=== PATIENT | male | born 1980 | race Caucasian/White ===

== ENCOUNTER 2017-02-02 10:37 | Observation (INO) | payer OTHER ==
[~2017-02-02] VITALS: Ht 170.2 cm; Wt 80.8 kg
[2017-02-02 11:35] VITALS: BP 116/79
[2017-02-02] MEDS ORDERED: HYDROcodone/APAP 5/325MG 1 TAB TABLET PO PRN (12:00)
--- NOTE | 2017-02-02 12:05 | PDOC1 ---
History and Physical Date of Admission Date of Admission DATE: 02/02/17 TIME: 12:00 Identification/Chief Complaint Chief Complaint Abdominal pain and swelling Problems: Source Source: Patient History of Present Illness History of Present Illness 36 yo male with compliants of reddness, pain and swelling athe umbilicus in the middle of a well healed midline scar. Past Medical History Cardiovascular: No pertinent hx Pulmonary: No pertinent hx GI: No pertinent hx Heme/Onc: No pertinent hx Psych: No pertinent hx Rheumatologic: No pertinent hx Infectious disease: No pertinent hx ENT: No pertinent hx Renal/: No pertinent hx Endocrine: No pertinent hx Dermatology: No pertinent hx Past Surgical History Past Surgical History: Appendectomy, Colon Resection Family History Family History: No Significant Social History Smoke: No ALCOHOL: none Drugs: None Current Medications Current Medications Active Scripts Active No Active Prescriptions or Reported Medications Allergies Allergies: Coded Allergies: No Known Drug Allergies (Unverified , 02/02/17) ROS General: YES: Fatigue Gastrointestinal: Yes Abdominal Pain Physical Exam General: Alert, Oriented X3, Cooperative, mild distress HEENT: Atraumatic, PERRLA, EOMI Lungs: Clear to auscultation, Normal air movement Heart: RRR Abdomen: Normal bowel sounds, Soft, Other (TTP at umbilicus with erythema ) Extremities: No clubbing, No cyanosis, No edema Skin: No significant lesion Neuro: Normal speech Psych/Mental Status: Mental status NL VTE Prophylaxis Ordered VTE Prophylaxis Devices: No VTE Pharmacological Prophylaxi: No Assessment/Plan Assessment/Plan Abdominal wall cellulitis possible abscess Start IV Abx and U/S for further evaluation. SHANA MATTHEWS MD Feb 02, 2017 12:05
[2017-02-02 12:58] VITALS: BP 116/79
[2017-02-02] MEDS: IV DEXTROSE 5%-LACT RINGERS 1,000 ML IV SCH (13:14)
--- NOTE | 2017-02-02 14:45 | RAD ---
Exam performed: Limited ultrasound evaluation of the umbilical area. Date of service: 02/02/17. Comparison: None available Discussion: Real-time grayscale imaging of the periumbilical area is performed in the area of pain, redness and swelling. There is a complex fluid collection measuring 2.3 x 1.8 x 1.1 cm beneath the area of concern in the umbilical area. Impression: Small fluid collection in the area of concern and probably represents a tiny abscess.
[2017-02-02 15:09] VITALS: BP 110/59
[2017-02-02 19:00] VITALS: BP 112/62
[2017-02-02 23:00] VITALS: BP 106/59
[2017-02-03 04:31] LABS: BASO % 0 % (0-3); EOS % 2 % (0-3); HEMATOCRIT 45.6 % (39.0-53.0); HEMOGLOBIN 14.7 g/dL (13.0-17.5); LYMPH # 1.2 x10^3/uL (1.0-4.8); LYMPH % 17 % (24-48); MEAN CORPUSCULAR HEMOGLOBIN 28 pg (25-35); MEAN CORPUSCULAR HGB CONC 32 g/dL (31-37); MEAN CORPUSCULAR VOLUME 87 fL (79-100); MONO % 12 % (0-9); NEUT % 69 % (31-73); PLATELET COUNT 239 x10^3/uL (140-400); RED BLOOD COUNT 5.22 x10^6/uL (4.30-5.70); RED CELL DISTRIBUTION WIDTH 12.7 % (11.5-14.5); WHITE BLOOD COUNT 7.4 x10^3/uL (4.0-11.0)
[2017-02-03 07:00] VITALS: BP 95/62
[2017-02-03] MEDS ORDERED: IV RINGERS,LACTATED 1000ML 1,000 ML IV SCH (08:36)
[2017-02-03] MEDS ORDERED: PROCHLORPERAZINE 10 MG/2 ML VIAL. IV PRN (08:45)
[2017-02-03] MEDS ORDERED: HYDROmorphone 2 MG/ML VIAL IV PRN (08:45)
[2017-02-03] MEDS ORDERED: ONDANSETRON PF 4 MG/2 ML VIAL. IV PRN (08:45)
[2017-02-03] MEDS ORDERED: LIDOCAINE 1% 1 ML SYRINGE. ID PRN (08:45)
[2017-02-03] MEDS ORDERED: fentaNYL PF VIAL 100 MCG/2 ML VIAL IV PRN ×2 (08:45)
[2017-02-03] MEDS ORDERED: MORPHINE SULFATE 2 MG/ML DISP.SYRIN. IV PRN (08:45)
[2017-02-03 10:49] VITALS: BP 115/70
[2017-02-03] MEDS: IV DEXTROSE 5%-LACT RINGERS 1,000 ML IV SCH (11:08)
[2017-02-03] MEDS ORDERED: ONDANSETRON PF 4 MG/2 ML VIAL. ONE (13:12)
[2017-02-03] MEDS ORDERED: LIDOCAINE 2% PF Vial for OR 5 ML VIAL. ONE (13:12)
[2017-02-03] MEDS ORDERED: PROPOFOL 20 ML IV ONE (13:12)
[2017-02-03] MEDS ORDERED: DEXAMETHASONE SOD PHOS 20 MG/5 ML VIAL. ONE (13:12)
[2017-02-03] MEDS ORDERED: fentaNYL PF VIAL 100 MCG/2 ML VIAL ONE ×2 (13:16→14:34)
[2017-02-03] MEDS ORDERED: MIDAZOLAM HCL/PF 2 MG/2 ML VIAL. ONE (13:17)
[2017-02-03] MEDS ORDERED: BUPIVACAINE-EPI 0.25%-1:200000 MPF 30 ML VIAL. ONE (13:39)
[2017-02-03] MEDS ORDERED: SEVOFLURANE 31 TO 60 MINUTES. IH ONE (13:48)
--- NOTE | 2017-02-03 13:50 | PDOC4 ---
Operative Note Operative Note Date: 02/03/2017 Preoperative diagnosis: Abdominal wall abscess Postoperative diagnosis: Same Procedure: Incision and drainage of abscess Surgeon: Gabriel Specimen: Cultures Dictation: Patient is a 36-year-old male who has had a previous midline incision which is well-healed now he comes in with complaints of redness and swelling at the umbilicus. Procedure of incision and drainage of abscess was explained to the patient in detail all risks benefits were also discussed including bleeding and infection alternatives to this procedure also discussed. The patient seemed understanding gave both verbal and written consent to have the procedure performed. Patient was taken to the operating room placed in supine position general anesthesia was initiated once patient was asleep and intubated his abdomen was prepped and draped usual sterile fashion using Betadine scrub and solution. An area around the abscess was injected with quarter percent Marcaine with epinephrine and incision was made with 11 blade scalpel into the abscess cavity there was clear purulent material expressed this was cultured. Wound was then irrigated with copious amounts of normal saline and packed with iodoform Nu Gauze. Wound was then dressed with 4 x 4's Medipore tape. Estimated blood loss 10 mL. Patient was awakened and neck [facility] operative room taken to recovery in stable condition all sponge instrument and needle counts listed as correct. SHANA MATTHEWS MD Feb 03, 2017 13:50
--- NOTE | 2017-02-03 13:52 | DISCH ---
DISCHARGE INSTRUCTIONS Condition on Discharge Condition on Discharge: Stable Activity After Discharge Activity Instructions for Disc: No restrictions Diet after Discharge Diet after Discharge: Regular Wound Incision Care Other wound/incision instructi: May shower in 24 hours Wound Care Equipment: Dressings (Wound packing to be change daily with nu gauze ) Contacting the [facility] after DC Call your doctor for: If your condition worsens Follow-Up Follow up with: Dr Matthews in 1 week SHANA MATTHEWS MD Feb 03, 2017 13:52
[2017-02-03 14:35] VITALS: BP 99/57
== END 2017-02-03 16:45 | disposition home or self-care (01) ==
LOC: 4 NORTH 11:03 → INTOOBSV 11:03
PROVIDERS: ADMIT Surgery; ATTEND Surgery
DX: L02.211 Cutaneous abscess of abdominal wall (principal)
CPT/HCPCS: 10060; 36415; 76705; 85025; 87071; 87075; 87205; 96365; 96375; 96376; G0378; G0379; J0690; J1100; J2250; J2405; J2704; J3010; J7120; J2001

== ENCOUNTER → 2017-06-03 | Day surgery (SDC) | payer OTHER ==
[~2017-06-03] MED LIST: LIDOCAINE 2%/EPI 1:100,000 20 ML VIAL. IJ ONE
--- NOTE | 2017-06-03 08:20 | PDOC4 ---
Operative Note Operative Note Date:06/03/2017 Preop: chronic umbilical wound Post op: Same Procedure: debridement of wound Surgeon: Gabriel Specimen: None EBL: minimal Dictation: 36 yo male with chronically draining umbilical wound from midline incision. Area prepped with chloraprep, injected with 2% Lidocaine with epi. The wound was probed with small clamp and the over lying skin was sharply incised with 15 blade scalpel. Cautery was used to coagulate the granulation tissue and the wound was packed with nugauze. Dressed with island dressing. Patient tolerated procedure well and discharged to home. SHANA MATTHEWS MD Jun 03, 2017 08:20
--- NOTE | 2017-06-03 08:21 | DISCH ---
DISCHARGE INSTRUCTIONS Condition on Discharge Condition on Discharge: Stable Activity After Discharge Activity Instructions for Disc: No restrictions Diet after Discharge Diet after Discharge: Regular Wound Incision Care Other wound/incision instructi: Pack wound daily Contacting the [facility] after DC Call your doctor for: If your condition worsens Follow-Up Follow up with: Dr Matthews in 2 weeks SHANA MATTHEWS MD Jun 03, 2017 08:21
== END | disposition home or self-care (01) ==
LOC: SURG 07:16
PROVIDERS: ATTEND Surgery
DX: T81.89XA Other complications of procedures, not elsewhere classified, initial encounter (principal); Y84.9 Medical procedure, unspecified as the cause of abnormal reaction of the patient, or of later complication, without mention of misadventure at the time of the procedure; Y92.89 Other specified places as the place of occurrence of the external cause; Z86.69 Personal history of other diseases of the nervous system and sense organs; Z90.49 Acquired absence of other specified parts of digestive tract; Z87.442 Personal history of urinary calculi; Z87.39 Personal history of other diseases of the musculoskeletal system and connective tissue; Z72.89 Other problems related to lifestyle
CPT/HCPCS: 11042; J3490

== ENCOUNTER → 2017-07-14 | Outpatient (CLI) | payer OTHER | END | disposition home or self-care (01) | LOC: PMGWOUND 13:06 | DX: T81.31XA Disruption of external operation (surgical) wound, not elsewhere classified, initial encounter (principal); L02.211 Cutaneous abscess of abdominal wall; Z72.89 Other problems related to lifestyle; Y83.8 Other surgical procedures as the cause of abnormal reaction of the patient, or of later complication, without mention of misadventure at the time of the procedure | CPT/HCPCS: 99204; 99214 ==

== ENCOUNTER → 2017-09-01 | Outpatient (CLI) | payer OTHER ==
[~2017-09-01] MED LIST changes: +CONTRAST GIVEN MC; -LIDOCAINE 2%/EPI 1:100,000 20 ML VIAL. IJ ONE
[2017-09-01] MEDS: IOHEXOL 300 MG/ML 100ML VIAL. IJ (12:57)
== END | disposition home or self-care (01) ==
LOC: RAD 12:11
DX: K63.2 Fistula of intestine (principal); N20.0 Calculus of kidney
CPT/HCPCS: 73501; 74176; Q9967

== ENCOUNTER → 2017-10-07 | Outpatient (CLI) | payer OTHER ==
[2017-10-07 16:22] LABS: ADD MAN DIFF? NO
[2017-10-07 16:26] LABS: BASO % 0 % (0-3); EOS # 0.1 x10^3/uL (0.0-0.7); EOS % 1 % (0-3); HEMATOCRIT 46.7 % (39.0-53.0); HEMOGLOBIN 15.6 g/dL (13.0-17.5); LYMPH # 1.1 x10^3/uL (1.0-4.8); LYMPH % 10 % (24-48); MEAN CORPUSCULAR HEMOGLOBIN 29 pg (25-35); MEAN CORPUSCULAR HGB CONC 33 g/dL (31-37); MEAN CORPUSCULAR VOLUME 86 fL (79-100); MONO # 1.1 x10^3/uL (0.0-1.1); MONO % 10 % (0-9); NEUT # 8.6 x10^3uL (1.8-7.7); NEUT % 78 % (31-73); PLATELET COUNT 338 x10^3/uL (140-400); RED BLOOD COUNT 5.42 x10^6/uL (4.30-5.70); RED CELL DISTRIBUTION WIDTH 12.7 % (11.5-14.5)
[2017-10-07 16:39] LABS: ANION GAP 8 (6-14); BLOOD UREA NITROGEN 16 mg/dL (8-26); CALCIUM 8.9 mg/dL (8.5-10.1); CARBON DIOXIDE 31 mmol/L (21-32); CHLORIDE 100 mmol/L (98-107); CREATININE 1.2 mg/dL (0.7-1.3); GFR 67.8; GLUCOSE 111 mg/dL (70-99); POTASSIUM 4.6 mmol/L (3.5-5.1); SODIUM 139 mmol/L (136-145)
== END | disposition home or self-care (01) ==
LOC: LAB 16:06
DX: K63.2 Fistula of intestine (principal); R11.2 Nausea with vomiting, unspecified
CPT/HCPCS: 36415; 80048; 85025

== ENCOUNTER → 2017-10-29 | Day surgery (SDC) | payer OTHER ==
[~2017-10-29] MED LIST changes: -CONTRAST GIVEN MC; +IV RINGERS,LACTATED 1000ML 1,000 ML IV; +LIDOCAINE 1% PF 2 ML VIAL. ID; +LIDOCAINE 2% PF Vial for OR 5 ML VIAL.; +MIDAZOLAM HCL/PF 2 MG/2 ML VIAL. IV; +PROPOFOL 20 ML IV; +fentaNYL PF VIAL 100 MCG/2 ML VIAL IV
== END | disposition home or self-care (01) ==
LOC: SURG 08:37
DX: K21.0 Gastro-esophageal reflux disease with esophagitis (principal); K29.50 Unspecified chronic gastritis without bleeding; K31.89 Other diseases of stomach and duodenum; D50.9 Iron deficiency anemia, unspecified; Z79.899 Other long term (current) drug therapy; Z87.442 Personal history of urinary calculi; E53.8 Deficiency of other specified B group vitamins; Z72.89 Other problems related to lifestyle; Z90.49 Acquired absence of other specified parts of digestive tract; Z98.890 Other specified postprocedural states
CPT/HCPCS: 43239; 88305; 88342; J2704

== ENCOUNTER 2021-01-21 19:04 | Emergency (ER) | payer MEDICAID, OTHER ==
[2017-10-29 10:41] VITALS: BP 122/68
[~2021-01-21 19:04] MED LIST changes: +CELE200C PO; -IV RINGERS,LACTATED 1000ML 1,000 ML IV; -LIDOCAINE 1% PF 2 ML VIAL. ID; -LIDOCAINE 2% PF Vial for OR 5 ML VIAL.; -MIDAZOLAM HCL/PF 2 MG/2 ML VIAL. IV; +PANT40GR PO; -PROPOFOL 20 ML IV; +TURM500C7 PO; +ZINC30CA PO; +[UNRECOGNIZED DRUG - CODE] SL; -fentaNYL PF VIAL 100 MCG/2 ML VIAL IV
== END 2021-01-21 22:00 | disposition left against medical advice (07) ==
LOC: ER 19:04
DX: M25.569 Pain in unspecified knee (principal); Z53.21 Procedure and treatment not carried out due to patient leaving prior to being seen by health care provider